=== PATIENT | female | born 1970 | race American Indian/Alaskan Native ===

== ENCOUNTER 2020-07-01 13:11 | Outpatient (CLI) | payer BC ==
--- NOTE | 2020-07-01 14:58 | Magnetic Resonance Report ---
Bilateral breast MR without and with contrast. History: Screening breast MRI, patient at high risk for breast malignancy based upon family history. Comparison: Mammogram 04/08/2020. Technique: Multiplanar multisequence MR images of the breast were obtained before and after the intra venous administration of intravenous contrast. Post processing analysis and review was performed on a separate computer workstation. Findings: Breast composition is scattered fibroglandular. There is moderate background parenchymal enhancement within both breasts which decreases the sensitivity of MRI. LEFT BREAST: Located within the left superior breast at middle depth is a circumscribed oval enhancin g 9 x 5 x 6 mm mass. This demonstrates T2 hyperintense signal and may represent a fibroadenoma. Mult iple scattered enhancing foci are present which decreases the sensitivity of MRI, however the majorit y of these foci show low level type I enhancement kinetics typical of benign etiologies. RIGHT BREAST: No discrete enhancing mass, dominant focus, or other abnormal enhancement is identified within the right breast. Multiple scattered enhancing foci are present which decreases the sensitivi ty of MRI, however the majority of these foci show low level type I enhancement kinetics typical of b enign etiologies. No abnormal axillary or internal mammary lymph nodes. Impression: There is a 9 mm oval mass in the left superior breast. A targeted ultrasound is recommended with subs equent ultrasound-guided biopsy if a sonographic correlate is identified. For localization purposes t his is estimated to be at the 12:00 position, 8 to 9 cm from the nipple. If no sonographic correlate is identified, an MRI guided biopsy would be recommended. BIRADS 0: Incomplete--Needs Additional Imaging Evaluation. A normal MRI does not exclude the presence of some forms of breast malignancy as literature reports s uggest that some forms of ductal carcinoma in situ or lobular carcinoma, particularly, may not be det ected on MRI. The sensitivity and specificity of MRI for cancers under 5 mm may be reduced. MRI does not replace the recommendation for annual conventional mammographic evaluation and should be used as an adjunct to mammography and physical examination as necessary. Signer Name: Gurpreet De La Torre MD Signed: 07/01/2020 2:57 PM Workstation Name: [id number]
== END 2020-07-01 13:12 | disposition home or self-care (01) ==
LOC: SPVIMAG 13:11
PROVIDERS: ATTEND Surgery
DX: Z12.31 Encounter for screening mammogram for malignant neoplasm of breast (principal); N64.89 Other specified disorders of breast; Z80.3 Family history of malignant neoplasm of breast
CPT/HCPCS: A9577; C8908; 77049

== ENCOUNTER 2020-07-21 09:11 | Outpatient (CLI) | payer BC ==
--- NOTE | 2020-07-21 09:43 | Ultrasound Report ---
ULTRASOUND BREAST LEFT LIMITED, 07/21/2020 CLINICAL INFORMATION / INDICATION: Abnormal breast MRI. TECHNIQUE: Targeted ultrasound evaluation was performed of the area of interest. COMPARISON: Bilateral breast MRI 07/01/20. FINDINGS: There is a well-circumscribed, ovoid, isoechoic solid nodule at the 12:00 position 7 cm from the nipp le which corresponds to the site of the MRI finding. The longest axis parallels the chest wall and me asures 8.7 mm. No posterior features are seen and there is no internal vascularity on Doppler exam. N o other abnormality is seen. IMPRESSION: 8.7 mm benign-appearing solid nodule in the left superior breast corresponds to the site of the MRI abnormality. 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 Unless biopsy is clinicall y warranted at this time, a follow-up left breast ultrasound in 6 months may be helpful in assessing stability. Follow up recommendation: Ultrasound BI-RADS Category 3: Probably Benign. Followup in 6 months. A normal or "negative" report should not preclude biopsy or follow-up of a clinically suspicious find ing. Signer Name: Reid Billy MD Signed: 07/21/2020 9:38 AM Workstation Name: [id number]
== END 2020-07-21 09:12 | disposition home or self-care (01) ==
LOC: SPVWC 09:11
PROVIDERS: ATTEND Surgery
DX: R92.8 Other abnormal and inconclusive findings on diagnostic imaging of breast (principal)